=== PATIENT | female | born 1985 | race Caucasian/White ===

== ENCOUNTER 2021-06-09 07:15 | Inpatient (IN) ==
[~2021-06-09 07:15] MED LIST: *HR* Nalbuphine 10 MG/ML AMPUL IV PRN; Azithromycin 500 MG in 0.9 % Sodium Chloride 250 ML IVPB PRN; Famotidine 20 MG/2 ML VIAL IVP PRN; Lidocaine 1% 20 ML MDV INFILT PRN; Metoclopramide 10 MG/2 ML VIAL IVP PRN; Naloxone 0.4 MG/ML INJ IVP PRN; Ondansetron 4 MG/2 ML VIAL IVP PRN
[2021-06-09 08:11] LABS: Basophils % 0.1 %; Eosinophils # 0.1 K/mcL (0.0-0.6); Eosinophils % 0.6 %; Hematocrit 37.9 % (35.3-44.9); Hemoglobin 12.3 g/dL (11.5-15.4); Immature Granulocytes % 0.3 % (0-4); Lymphocytes # 0.7 K/mcL (0.6-4.6); Lymphocytes % 6.8 %; Mean Corpuscular HGB Conc 32.5 g/dL (31.6-35.5); Mean Corpuscular Hemoglobin 26.7 pg (28.0-33.3); Mean Corpuscular Volume 82.2 fL (83.0-100.0); Mean Platelet Volume 12.1 fL (9.4-12.4); Monocytes # 0.7 K/mcL (0.0-1.3); Monocytes % 6.4 %; Neutrophils # 9.2 K/mcL (1.6-8.9); Platelet Count 108 K/mcL (140-400); Red Blood Count 4.61 M/mcL (3.82-4.97); Red Cell Distribution Width 14.3 % (11.5-14.5); Segmented Neutrophils % 85.8 %; White Blood Count 10.7 K/mcL (4.3-11.1)
[2021-06-09] MEDS: Ringers Solution, Lactated 1,000 ML IVC SCH ×2 (08:30→16:30)
[2021-06-09] MEDS ORDERED: Ropivacaine/PF 0.2% 20 ML VIAL EP ONE (08:36)
[2021-06-09] MEDS ORDERED: EPHEDrine 50 MG/ML VIAL IVP PRN (08:36)
[2021-06-09] MEDS ORDERED: *HR* FentaNYL (PF) 100 MCG/2 ML VIAL EP ONE (08:36)
[2021-06-09 09:01] LABS: Alanine Aminotransferase 18 Units/L (7-52); Aspartate Amino Transferase 15 Units/L (13-39); BUN/Creatinine Ratio 14 (6-26); Blood Urea Nitrogen 7 mg/dL (6-20); Influenza A PCR Negative (Negative); Influenza B PCR Negative (Negative); Lactate Dehydrogenase 149 Units/L (140-271); Resp. Syncytial Virus PCR Negative (Negative); Uric Acid 4.6 mg/dL (2.3-7.6); eGFR For African Americans > 60 (> 60); eGFR For Non-African Americans > 60 (> 60)
[2021-06-09 09:15] LABS: SARS-CoV-2 by PCR (In House) Negative (Negative)
[2021-06-09 11:08] LABS: Protein/Creatinine Ratio,Urine 0.16 mg/mg (0.00-0.20)
[2021-06-09] MEDS ORDERED: Oxytocin 20 units/ LR 1000 mL 20 UNIT/1,000 ML BAG IVC ONE (16:38)
[2021-06-09] MEDS: Epidural Premix (fent/bupiv) 110 ML EP SCH ×2 (18:28→18:29)
[2021-06-09] MEDS ORDERED: Benzocaine/Menthol 56 GM AEROSOL SPRAY TP PRN (18:49)
[2021-06-09] MEDS ORDERED: Oxytocin 20 units/ LR 1000 mL 20 UNIT/1,000 ML BAG IVC SCH (18:49)
[2021-06-09] MEDS ORDERED: Lanolin 7 G OINT...G. TP PRN (18:49)
[2021-06-09] MEDS ORDERED: Ondansetron ODT 4 MG TAB.RAPDIS SL PRN (18:49)
[2021-06-10] MEDS: Acetaminophen 325 MG TABLET PO SCH ×5 (02:47→16:00)
[2021-06-10 08:03] VITALS: BP 143/76; PULSE 76; TEMP 97.6; O2SAT 98
[2021-06-10] MEDS ORDERED: Prenatal Vit/FA 1 EACH TABLET PO SCH (09:00)
== END 2021-06-10 18:44 | disposition home or self-care (01) | DRG 560 ==
LOC: 1NENULAB → 1NENUOBS 19:47
PROVIDERS: ADMIT Advanced Practice Midwife; ATTEND Advanced Practice Midwife